=== PATIENT | male | born 1995 | race Caucasian/White ===

== ENCOUNTER → 2020-03-03 11:49 | Outpatient (CLI) | payer BC, SELFPAY ==
[2020-03-03 14:22] LABS: Basophils % 0.5 % (0.1-2.0); Eosinophils # 0.2 K/mm3 (0.0-0.4); Eosinophils % 1.9 % (0.1-12.0); Hematocrit 48.2 % (42.0-52.0); Hemoglobin 16.5 g/dL (14.1-18.0); Mean Corpuscular HGB Conc 34.2 g/dL (31.8-35.4); Mean Corpuscular Hemoglobin 31.2 pg (27.0-31.2); Mean Corpuscular Volume 91.1 fl (80-94); Mean Platelet Volume 7.6 fl (7.4-10.4); Monocytes # 0.6 K/mm3 (0.1-1.0); Monocytes % 6.3 % (1.7-9.3); Neutrophils # 6.1 K/mm3 (1.8-7.8); Neutrophils % 69.3 % (37.0-80.0); Platelet Count 302 K/mm3 (142-424); Red Blood Count 5.29 M/mm3 (4.60-6.20); Red Cell Distribution Width 13.4 % (11.5-17.5); White Blood Count 8.9 K/mm3 (4.8-10.8)
[2020-03-03 14:47] LABS: Strep Scrn Group A (Rapid) Negative (Negative)
== END ==
PROVIDERS: PCP Nurse Practitioner; Visit Provider Nurse Practitioner
DX: Z11.52 Encounter for screening for COVID-19 (principal)
CPT/HCPCS: 36415; 85025; 87430; U0003

== ENCOUNTER 2020-03-05 13:08 | Emergency (ER) | payer BC, SELFPAY ==
[2020-03-05 13:09] VITALS: BP 137/87; PULSE 73; RESP 18; TEMP 36.9; O2SAT 99; BMI 25.7
--- NOTE | 2020-03-05 13:28 | HMH.EDUTC ---
[facility] Disposition Clinical Impression: Strep throat Disposition: Home, Self-Care Condition on Discharge: Good Instructions: DI for Strep Throat, Strep Throat, Strep Throat (Alternative Therapy), Amoxicillin Additional Instructions: *Monitor Temp, Over the counter Motrin or Tylenol as directed/as needed Tylenol every 4 hours and Motrin every 6 hours (as long as your family doctor has told you that you can take it) for fever or pain. and straight to ER if unable to lower temp less than 101.0 after medication given *Warm salt water gargles may help to soothe the throat *Throat Lozenges *Warm fluids like tea with honey may help to soothe the throat *Sleep elevated *Humidifier/Vaporizer *If you did not take Penicillin shot or was unable to, start taking antibiotic immediately and make sure that you take it for the FULL length of time although you should start to feel better in 24-48 hours *change toothbrush and toothpaste 24-48 hours after starting to take antibiotics so you do not reinfect yourself Monitor Temp. Tylenol and/or Ibuprofen as needed. ER if fever is no less than 101 despite alternating Tylenol and Ibuprofen * Encourage fluids, water, Gatorade, powerade, pedialyte if /toddler/or child *Cold fluids, popsicles and ice cream may feel good on his throat Follow up IMMEDIATELY for new or worsening symptoms or no Noticeable improvement over the next 48-72 hours. 911 for difficulty breathing or swallowing Prescriptions: Amoxicillin [Amoxicillin 500mg Cap] 500 mg PO BID 10 Days #20 cap Transmission Status: Pending to [id number] Fluticasone Propionate [Flonase 50mcg nasal spray 16gm] 1 spr NS DAILY #1 bottle Transmission Status: Pending to [id number] Referrals: Harris Vital MD [Primary Care Provider] - As needed Time of Disposition: 13:34 Medical Decision Making - Josafat Inquiry Pt receiving controlled substance: No Josafat was queried for this patient: No Vital Signs: 03/05/20 13:09 Temperature 98.4 F Temperature Source Oral Pulse Rate [Right] 73 Respiratory Rate 18 Blood Pressure [Right Arm] 137/87 Blood Pressure Mean [Right Arm] 103 02 Sat by Pulse Oximetry 99 - Lab Data Lab results reviewed: Yes: I reviewed the patient's lab results. [facility] HPI - General Stated complaint: possible strepp sore throat with blisters Time Seen by Provider: 03/05/20 13:28 Description of Symptoms (Recalled from Triage Doc. by RN): pt c/o sore throat and blisters in back of throat HEENT Symptoms (Recalled from RN notes): Yes Resp Symptoms (Recalled from RN notes): No Skin Symptoms (Recalled from RN notes): No MS Symptoms (Recalled from RN notes): No Functional Status (Recalled from RN notes): wnl - History of Present Illness Provider Complaint: Patient states that he has been having sore throat and sinus drainage for several days States that he had a virtual visit on Tuesday and was tested for strep and COVID and they both was negative but states that he didnt feel like his throat was swabbed well State that his throat has continued to get worse and looks like he has blisters back in his throat so he come back in - Related Data Previous Rx's Medication Instructions Recorded Amoxicillin [Amoxicillin 500mg 500 mg PO BID 10 Days #20 cap 03/05/20 Cap] Fluticasone Propionate [Flonase 1 spr NS DAILY #1 bottle 03/05/20 50mcg nasal spray 16gm] Allergies Allergy/AdvReac Type Severity Reaction Status Date / Time No Known Allergies Allergy Verified 03/05/20 13:25 - Worker's Comp Is this a Worker's Comp case?: No Is this an [facility] Worker's Comp?: No Is this a [place] Worker's Comp?: No [facility] History - Hepatitis A Screen Drug use history?: No High risk sexual behaviors?: No History of sexually transmitted infection?: No Currently employed?: No Childcare worker?: No Do you have indoor plumbing?: Yes Do you have electricity?: Yes Attestation statement:: This patie
[2020-03-05 13:40] VITALS: BP 137/87; PULSE 73; RESP 18; TEMP 36.9; O2SAT 99
[2020-03-05 20:47] LABS: UTC Strep Screen (Rapid) Positive (Negative)
== END 2020-03-05 13:42 | disposition home or self-care (01) ==
PROVIDERS: Emergency Provider Nurse Practitioner; PCP Family Medicine
DX: J02.0 Streptococcal pharyngitis (principal)
CPT/HCPCS: 87880; 99202; G0463

== ENCOUNTER → 2020-09-29 12:07 | Outpatient (CLI) | payer BC, SELFPAY ==
[2020-09-29 13:11] LABS: Basophils % 0.8 % (0.1-2.0); Eosinophils % 0.3 % (0.1-12.0); Hematocrit 44.4 % (42.0-52.0); Hemoglobin 15.8 g/dL (14.1-18.0); Lymphocytes # 0.9 K/mm3 (0.7-4.5); Lymphocytes % 21.3 % (10-50); Mean Corpuscular HGB Conc 35.6 g/dL (31.8-35.4); Mean Corpuscular Hemoglobin 30.7 pg (27.0-31.2); Mean Corpuscular Volume 86.1 fl (80-94); Mean Platelet Volume 8.2 fl (7.4-10.4); Monocytes # 0.2 K/mm3 (0.1-1.0); Monocytes % 5.9 % (1.7-9.3); Neutrophils # 2.9 K/mm3 (1.8-7.8); Neutrophils % 71.8 % (37.0-80.0); Platelet Count 213 K/mm3 (142-424); Red Blood Count 5.16 M/mm3 (4.60-6.20); Red Cell Distribution Width 12.6 % (11.5-17.5)
== END ==
PROVIDERS: PCP Family Medicine; Visit Provider Nurse Practitioner
DX: Z20.822 Contact with and (suspected) exposure to COVID-19 (principal); U07.1 COVID-19
CPT/HCPCS: 36415; 85025; U0003

== ENCOUNTER 2020-10-02 17:01 | Emergency (ER) | payer BC, SELFPAY ==
[2020-10-02 17:02] VITALS: BP 156/91; PULSE 83; RESP 18; TEMP 37; O2SAT 97; BMI 25.1
--- NOTE | 2020-10-02 17:06 | XR_ITS ---
PROCEDURE INFORMATION: Exam: XR Chest Exam date and time: 10/02/2020 5:06 PM Age: 25 years old Clinical indication: Patient HX: Patient coughing up trace blood. Patient is covid positive. ; Additional info: Hemoptysis TECHNIQUE: Imaging protocol: XR of the chest. Views: 2 views. Total images: 2 COMPARISON: No relevant prior studies available. FINDINGS: Lungs: Normal pulmonary expansion. Pulmonary vasculature grossly normal. Question faint alveolar densities in the right lung base concerning for pneumonia, hemorrhage, edema, or atelectasis. Pleural spaces: No pleural effusion. No pneumothorax. Heart/Mediastinum: Heart size normal. No tracheal/mediastinal shift. Bones/joints: No acute osseous abnormalities are identified. IMPRESSION: Alveolar opacities in the right lower lobe suggesting pneumonia, hemorrhage, edema, or atelectasis.
--- NOTE | 2020-10-02 17:16 | HMH.EDURI ---
ED Disposition Clinical Impression: Hemoptysis, COVID Disposition: Home, Self-Care Condition on Discharge: Good Instructions: DI for COVID-19 (Suspected or Confirmed ), Coronavirus Disease 2019 Referrals: Harris Vital MD [Primary Care Provider] - As needed - Critical Care Critical Care Time: No Attestation: On , the high probability of a clinically significant, sudden or life threatening deterioration of the following system(s) required my full and direct attention, intervention and personal management. The time I documented below is in addition to time spent performing reported procedures but includes the following listed in this critical care notation. Medical Decision Making - Medical Records Medical records reviewed: Yes: I reviewed the patient's medical records. - Josafat Inquiry Pt receiving controlled substance: No Vital Signs: 10/02/20 17:02 Temperature 98.6 F Temperature Source Oral Pulse Rate [Right] 83 Respiratory Rate 18 Blood Pressure [Right Arm] 156/91 H Blood Pressure Mean [Right Arm] 112 02 Sat by Pulse Oximetry 97 Oxygen Delivery Method Room Air Orders (Tests/Meds): ORDERS Category Date Time Status XR chest 2V Stat Exams 10/02/20 17:06 Taken - Radiology Data #1 Image(s): Chest Image Reviewed: Yes I reviewed the patient's radiology image No acute pneumonia, pneumothorax, florid pulmonary edema or widened mediastinum per my read. Radiology over read pending Medical Decision Narrative: Patient is PERC negative. Likely some blood-streaked sputum secondary to viral Covid infection. Patient is afebrile, well-appearing and nontoxic. Oxygen saturations 98% on room air. No chest pain or shortness of breath. Chest x-ray with no clinically significant acute findings that would necessitate admission or further work-up. Discharged home to continue to convalesce at home and follow-up with PCP for reevaluation as advised by health department. URI/Sore Throat HPI - General Stated Complaint: covid positive blood in speutum Time Seen by Provider: 10/02/20 17:16 - History of Present Illness HPI Narrative: This is a 25-year-old male with no significant past medical history presents to the emergency department for minor hemoptysis in the started today. Patient was diagnosed with Covid a few days ago and has had an intermittent cough. No chest pain or difficulty breathing. No history of DVT/PE. No exogenous hormones. Patient states that every now and then when he coughs he gets some blood-streaked sputum. He has mild body aches, otherwise his relatively asymptomatic and feels well. - Related Data Previous Rx's Medication Instructions Recorded Amoxicillin [Amoxicillin 500mg 500 mg PO BID 10 Days #20 cap 03/05/20 Cap] Fluticasone Propionate [Flonase 1 spr NS DAILY #1 bottle 03/05/20 50mcg nasal spray 16gm] Allergies Allergy/AdvReac Type Severity Reaction Status Date / Time No Known Allergies Allergy Verified 03/05/20 13:25 [facility] History - Hepatitis A Screen Attestation statement:: This patient has been screened for Hepatitis A risk factors. I have reviewed the patient's past medical history: Yes (Noncontributory) ROS Obtained: Yes All systems reviewed & no additional complaints Physical Exam - General General appearance: alert, in no apparent distress - Head Head exam: atraumatic, normocephalic - ENT ENT exam: Present: normal exam, normal oropharynx, mucous membranes moist, other (No blood in the posterior oropharynx or nose) - Chest Chest inspection: Present: normal inspection, symmetric chest wall rise - Respiratory Respiratory exam: Present: normal lung sounds bilaterally. Absent: respiratory distress - Cardiovascular Cardiovascular exam: Present: regular rate, normal rhythm - Neurological Exam Neurological exam: Present: alert, oriented X3 - Skin Skin exam: Present: warm, dry
[2020-10-02 18:00] VITALS: BP 144/96; PULSE 67; RESP 18; TEMP 36.8; O2SAT 97
== END 2020-10-02 18:06 | disposition home or self-care (01) ==
LOC: ER 17:29
PROVIDERS: Emergency Provider Emergency Medicine; PCP Family Medicine
DX: U07.1 COVID-19 (principal); R05 Cough
CPT/HCPCS: 71046; 99282